=== PATIENT | female | born 1990 | race Caucasian/White ===

== ENCOUNTER 2020-06-13 07:00 | Outpatient (REF) | payer OTHER, SELFPAY ==
[2020-06-13 08:03] LABS: COVID-19 Test Negative (Negative)
== END 2020-06-13 07:01 | disposition home or self-care (01) ==
LOC: HO.EMPCOV 07:00
PROVIDERS: Visit Provider Internal Medicine
DX: Z20.828 Contact with and (suspected) exposure to other viral communicable diseases (principal)
CPT/HCPCS: 87635; C9803

== ENCOUNTER 2020-06-27 14:48 | Outpatient (REF) | payer OTHER, SELFPAY ==
[2020-06-27 18:43] LABS: COVID-19 Test Negative (Negative)
== END 2020-06-27 14:49 | disposition home or self-care (01) ==
LOC: HO.EMPCOV 14:48
PROVIDERS: Visit Provider Internal Medicine
DX: Z20.828 Contact with and (suspected) exposure to other viral communicable diseases (principal)
CPT/HCPCS: 87635; C9803

== ENCOUNTER 2020-08-07 10:55 | Outpatient (REF) | payer OTHER, SELFPAY ==
[2020-08-07 11:31] LABS: COVID-19 Test Negative (Negative)
== END 2020-08-07 10:56 | disposition home or self-care (01) ==
LOC: HO.EMPCOV 10:55
PROVIDERS: Visit Provider Internal Medicine
DX: Z20.822 Contact with and (suspected) exposure to COVID-19 (principal)
CPT/HCPCS: 36415; 87635; C9803

== ENCOUNTER 2021-08-02 11:22 | Outpatient (REF) | payer OTHER, SELFPAY ==
[2021-08-10 09:52] LABS: Influenza A RNA Ref NOT DETECTED; Influenza B RNA Ref NOT DETECTED
[2021-08-10 09:56] LABS: SARS CoV2 RNA Ref DETECTED
== END 2021-08-02 11:23 | disposition home or self-care (01) ==
LOC: HO.LAB 11:22
PROVIDERS: Visit Provider Hospitalist
DX: Z20.822 Contact with and (suspected) exposure to COVID-19 (principal)
CPT/HCPCS: 0241U; 36415